=== PATIENT | female | born 1960 | race Caucasian/White ===

== ENCOUNTER → 2016-11-23 | Day surgery (SDC) | payer OTHER ==
[~2016-11-23] MED LIST: ACETAMINOPHEN; ACTOS30 MG PO; ADVIL200 M1 PO; ALBUTEROL MININEB NEB; ALBUTEROL17 GM INH; BENTYL10 MG PO; BUPROPION HCL150 M3 PO; BUPROPION XL150 MG PO; CLARITIN D; CLARITIN10 M2 PO; DICYCLOMINE HCL20 MG PO; FLUOXETINE HCL20 M1 PO; GLIPIZIDE10 MG PO; GLUCOPHAGE500 MG PO; GLUCOTROL PO; GLUCOTROL XL; GLUCOTROL10 MG PO; HCTZ; HYDROCODON-ACE1 EAC9; LASIX PO; LIPITOR; LISINOPRIL; MAG-OX 400400 M1 PO; METFORMIN PO; NASONEX17 GM; OMEPRAZOLE20 M2 PO; PIOGLITAZONE HC30 MG PO; POTASSIUM CHLO20 ME1 PO; PRAVACHOL PO; PRAVASTATIN SOD40 MG PO; PREVACID PO; PRILOSEC PO; PROZAC PO; SARAFEM20 MG PO; TENORMIN50 MG PO; VICTOZA 3-0.6 MG/0.1; VITAMIN B-1100 M1 PO; WELLBUTRIN100 MG PO; ZESTRIL40 MG PO; [UNRECOGNIZED DRUG - REMARK]
--- NOTE | ~2016-11-23 | OR ---
Unit #: [id number] #: [id number] Patient: RAND SANTOS [id number] [address] [address] [id number] O MR#: [id number] NAME: RAND SANTOS ROOM: Date of Procedure: 11/23/2016 Admission Date: 11/23/2016 Surgeon: Tj Haile M.D. : 1960 Attending Physician: Tj Haile M.D. Primary Care Physician: Sabine Villar M.D. OPERATIVE REPORT PREOPERATIVE DIAGNOSIS Right ureteral stone. POSTOPERATIVE DIAGNOSIS Right ureteral stone, passed right ureteral stone. PROCEDURES PERFORMED 1. Cystoscopy. 2. Right ureteroscopy. 3. Right stent removal. ANESTHESIA General. INDICATIONS FOR PROCEDURE Ms. Santos is a pleasant 56-year-old female who had a urinary tract infection and a possible right distal ureteral calculus with hydronephrosis. She had undergone stent placement. The risks, benefits, and alternatives including bleeding, infection, damage to adjacent structures, need for further surgery as well as risk of anesthesia were explained to the patient. Informed consent was obtained, and she wished to proceed. It should be noted that her creatinine is up from 1.0 a month ago to 1.7 today. DESCRIPTION OF PROCEDURE The patient was taken to the operative suite and properly identified. After the application of satisfactory general anesthetic, the patient was placed in a dorsal lithotomy position. All pressure points were padded to satisfaction of surgical, anesthetic, and nursing teams. Her genitalia were prepped and draped in the usual sterile fashion. I introduced a rigid 22-Mauritian cystoscope. The bladder had no tumors, stones, or masses. I grasped the right double-J stent. I brought out the meatus. I passed a 0.035 Sensor wire, which coiled in the right renal pelvis. I passed a semi-rigid ureteroscope alongside the wire. I looked my way all the way to the UPJ. There was no evidence of a stone. I elected to not leave a stent as this was atraumatic. The patient tolerated the procedure well without complication. She was transported stable and extubated to PACU. PLAN Because of her creatinine increase, I will have her hold her Lasix and her potassium. I will see her back in 2 weeks with a renal ultrasound and a BMP prior. Unit #: [id number] #: [id number] Patient: RAND SANTOS Dictated by... Veronica Naylor/rajwinder TD: 11/24/2016 03:37 JOB #: [id number] OPERATIVE REPORT Page 1 of 1 X Tj Haile MD X PROCEDURE OPERATIVE NOTE
--- NOTE | ~2016-11-23 | EKG ---
PATIENT: RAND SANTOS UNIT #: [id number] Ventricular Rate: 84 BPM Atrial Rate: 84 BPM P-R Interval: 172 ms QRS Duration: 82 ms Q-T Interval: 386 ms QTC Calculation(Bezet): 456 ms P [place]: 79 degrees Calculated R [place]: 49 degrees Calculated T [place]: 45 degrees Diagnosis Line: Normal sinus rhythm Diagnosis Line: Low voltage QRS Diagnosis Line: Otherwise normal ECG Diagnosis Line: When compared with ECG of 21-OCT-2016 11:24, Diagnosis Line: No significant change was found Diagnosis Line: Confirmed by WESTON ARANA MD ([id number]) on 11/26/2016 Diagnosis Line: 10:45:45 PM INTERPRETING MD: YASMEEN VILLATORO
[2016-11-23 11:35] LABS: BUN/CREATININE RATIO 17.64; CALCIUM SERUM 9.6 mg/dL (8.4-10.2); CREATININE SERUM 1.7 mg/dL (0.6-1.4); GLOM FILT RATE Estimated 33.1 mL/min (>60); POTASSIUM 4.8 mmol/L (3.5-5.1)
== END | disposition home or self-care (01) ==
LOC: CSUR 09:51
PROVIDERS: Urology
PROC: 0TP98DZ Removal of Intraluminal Device from Ureter, Via Natural or Artificial Opening Endoscopic (ICD-10-PCS; principal; 2016-11-23 11:30)
DX: N20.1 Calculus of ureter (principal); J45.909 Unspecified asthma, uncomplicated; N39.3 Stress incontinence (female) (male); K44.9 Diaphragmatic hernia without obstruction or gangrene; K29.70 Gastritis, unspecified, without bleeding; K57.90 Diverticulosis of intestine, part unspecified, without perforation or abscess without bleeding; F17.200 Nicotine dependence, unspecified, uncomplicated; Z86.010 Personal history of colon polyps; Z88.2 Allergy status to sulfonamides; Z98.890 Other specified postprocedural states; Z98.51 Tubal ligation status; Z91.040 Latex allergy status; Z91.048 Other nonmedicinal substance allergy status; Z88.0 Allergy status to penicillin; Z91.041 Radiographic dye allergy status
CPT/HCPCS: 80048; 82947; 93005; J1956; J2250; J2405; J3010

== ENCOUNTER → 2016-12-11 | Outpatient (CLI) | payer OTHER ==
--- NOTE | ~2016-12-11 | US77 ---
[facility] A Service [facility] RADIOLOGY TEXT RESULTS PATIENT: RAND SANTOS LOCATION: [facility] : 60 UNIT #: [id number] AGE: [address]: Tj Haile MD SEX: F ORDER DR: [id number] [facility]. [place], [place] [address] [id number] O MR#: [id number] Acc #: [id number] NAME: RAND SANTOS : 1960 SEX: F STUDY DATE/TIME: 12/11/2016 13:25 UNIT: [facility]US ROOM: STUDY DESCRIPTION: US Kidney Bilateral Complete Attending Physician: Tj Haile M.D. Referring Physician: Tj Haile M.D. Ordering Physician: Tj Haile M.D. Primary Care Physician: Sabine Villar M.D. MEDICAL IMAGING REPORT This report is preliminary unless electronic signature is present EXAM Renal ultrasound. INDICATION Acute renal failure. GFR 56.1, BUN 14, creatinine 1.1. PROCEDURE Talbot-scale and Doppler imaging of the kidneys and bladder. COMPARISON CT from 10/16/2016 FINDINGS Unremarkable bladder. Right kidney measures 9.8 cm. The left kidney measures 10.9 cm. No hydronephrosis. IMPRESSION Negative renal ultrasound. Dictated by... David Gonzales M.D. THIS IS AN ELECTRONICALLY VERIFIED REPORT David Gonzales M.D. at 12/12/2016 7:19 AM REXD/hakeem TD: 12/11/2016 23:12 JOB #: [id number] MEDICAL IMAGING REPORT [facility] A [facility] RADIOLOGY TEXT RESULTS PATIENT: RAND SANTOS LOCATION: [facility] : 60 UNIT #: [id number] AGE: [address]: Tj Haile MD SEX: F ORDER DR: Page 1 of 1 COPY
[2016-12-11 14:48] LABS: BUN/CREATININE RATIO 12.72; CALCIUM SERUM 10.1 mg/dL (8.4-10.2); CREATININE SERUM 1.1 mg/dL (0.6-1.4); GLOM FILT RATE Estimated 56.1 mL/min (>60); POTASSIUM 4.8 mmol/L (3.5-5.1)
== END | disposition home or self-care (01) ==
LOC: CGUS 12:56
PROVIDERS: Urology
DX: N17.9 Acute kidney failure, unspecified (principal)
CPT/HCPCS: 36415; 76770; 80048

== ENCOUNTER → 2016-12-27 | Outpatient (CLI) | payer OTHER ==
--- NOTE | ~2016-12-27 | TH ---
Unit #: [id number] #: [id number] Patient: RAND SANTOS [id number] [address] [address] [id number] O MR#: [id number] NAME: RAND SANTOS. : 1960 SEX: F STUDY DATE/TIME: 12/27/2016 UNIT: [facility] ROOM: STUDY DESCRIPTION: Attending Physician: Conner Schneider M.D. Referring Physician: Conner Schneider M.D. Primary Care Physician: Sabine Villar M.D. CARDIOLOGY REPORT EXAM Lexiscan Cardiolite stress test, nuclear portion. PROCEDURE Using technetium 99m labeled Cardiolite, rest and stress SPECT images were obtained. Multiple SPECT images were obtained in various views including horizontal and vertical long axis and short axis views of the left ventricle. Images were obtained by gated SPECT method. The patient was administered 10.84 mCi of Cardiolite at rest. The patient was administered 33.9 mCi of Cardiolite after Lexiscan infusion was completed. On the stress images, there is a small area of moderate decreased isotope activity in the anteroseptal wall. The rest images show a larger area of moderate decreased isotope activity anteroseptally. Comparing rest and stress images, there is a small area of predominantly fixed defect seen in the anteroseptal wall, worse on the rest images consistent with soft tissue artifact. The left ventricular ejection fraction is calculated to be 55%. There is no focal wall motion abnormality seen. CONCLUSION 1. There is a small area of predominantly fixed defect seen anteroseptally, most likely consistent with soft tissue artifact. 2. No obvious stress-induced ischemia noted. 3. The left ventricular ejection fraction is calculated to be 55%. 4. There is no focal wall motion abnormality seen. 5. Normal Lexiscan Cardiolite stress test. 6. Technically somewhat limited study. Clinical correlation is requested. Dictated by... Veronica Cornejo TD: 12/27/2016 12:03 JOB #: [id number] Unit #: [id number] #: [id number] Patient: SANTOS,RAND A CARDIOLOGY REPORT Page 1 of 1 X Agatha Hearn MD <ELECTRONICALLY SIGNED> 03/23/17 1429 CARDIOLOGY REPORT
--- NOTE | ~2016-12-27 | ST ---
Unit #: [id number] #: [id number] Patient: RAND SANTOS [id number] [facility] [address] [facility]. [place], [place] [address] [id number] O MR#: [id number] NAME: RAND SANTOS. : 1960 SEX: F STUDY DATE/TIME: 12/27/2016 UNIT: [facility] ROOM: STUDY DESCRIPTION: Cardiolite stress test Attending Physician: Conner Schneider M.D. Referring Physician: Conner Schneider M.D. Primary Care Physician: Sabine Villar M.D. CARDIOLOGY REPORT EXAM Walking Lexiscan Cardiolite stress test. DESCRIPTION Baseline EKG: Normal sinus rhythm with ventricular rate 83 BPM. Had a slightly prolonged QT segment. Lexiscan is a 4 minutes test with Lexiscan being injected within the first minute. Followup with Cardiolite. EKG during this test shows some nonspecific ST-T wave abnormalities in inferolateral leads. Patient had no complaints of chest pain, palpitations or dizziness. Had increased shortness of breath and fatigueness, which resolved in recovery phase. Maximum heart rate response was 130 BPM. Maximum blood pressure response was 155/75 mmHg. Cardiolite was injected after Lexiscan within the first minute of the test. Radionuclide test pending. Please correlate with nuclear images. Dictated by... Camila Atkins A.P.R.N. for Veronica Cornejo/ayala TD: 12/27/2016 10:34 JOB #: [id number] CC: [facility] CARDIOLOGY REPORT Page 1 of 1 X Camila Atkins APRN CARDIOLOGY REPORT
== END | disposition home or self-care (01) ==
LOC: CNUC 07:41
DX: R06.02 Shortness of breath (principal); I10 Essential (primary) hypertension; J44.9 Chronic obstructive pulmonary disease, unspecified; E11.9 Type 2 diabetes mellitus without complications; E78.5 Hyperlipidemia, unspecified
CPT/HCPCS: 78452; 93017; A9500; J2785

== ENCOUNTER → 2017-02-13 | Day surgery (SDC) | payer OTHER ==
--- NOTE | ~2017-02-13 | OR ---
Unit #: [id number] #: [id number] Patient: RAND SANTOS [id number] [address] [place], [place] [address] [id number] O MR#: [id number] NAME: RAND SANTOS ROOM: Date of Procedure: 02/13/2017 Admission Date: 02/13/2017 Surgeon: Raheem Tejeda M.D. : 1960 Attending Physician: Raheem Tejeda M.D. Primary Care Physician: Sabine Villar M.D. OPERATIVE REPORT PROCEDURES PERFORMED Esophagogastroduodenoscopy with biopsy and colonoscopy with snare polypectomy. INDICATIONS FOR PROCEDURE The patient with history of colon polyps in the past, also with history of biopsy proven Garcia esophagus and chronic GERD symptoms, undergoing evaluation with upper endoscopy and colonoscopy. MEDICATIONS Monitored anesthesia. POSTOPERATIVE FINDINGS 1. 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 Biopsies taken in the distal esophagus right above GE junction. 2. Mild esophagitis. 3. Chronic appearing gastritis, biopsies taken. 4. Normal duodenum and distal duodenum. 5. Colonoscopy completed to cecum. Prep was adequate. 6. Transverse colon polyp, 5 to 6 mm, snared and sent for histopathology. 7. Sigmoid colon polyps x3, 5 to 6 mm, snared and sent for histopathology together. 8. Very poor anal tone and internal hemorrhoids. PLAN Follow up on the pathology report. Repeat colonoscopy in 5 years. Repeat upper endoscopy in 3 years. DESCRIPTION OF PROCEDURE The patient was explained of the procedure, risks, and benefits along with the risks and benefits of anesthesia. She was brought to the endoscopy room. Propofol anesthesia was given. Bite block was placed. The scope was passed down the mouth into the esophagus, stomach, duodenum, and distal duodenum. Findings as described. Biopsies taken. Gently, I pulled it out of the patient's mouth. At this time, she was turned around and repositioned for colonoscopy. Rectal exam was done, which was normal. Colonoscope was lubricated, passed up the rectum, advanced under direct vision all the way to the cecum. Cecum was identified by ileocecal valve and appendiceal orifice. I then started to pull the scope out carefully looking. Several polyps were seen as described. I retroflexed in the rectum, internal hemorrhoids Unit #: [id number] #: [id number] Patient: RAND SANTOS noted. The scope was gently pulled out. She tolerated it well. Dictated by... Veronica Tabor/rajwinder TD: 02/13/2017 23:00 JOB #: [id number] CC: Rosa Antunez M.D. OPERATIVE REPORT Page 1 of 1 X Raheem Tejeda MD X PROCEDURE OPERATIVE NOTE
== END | disposition home or self-care (01) ==
LOC: COPS 09:29
DX: Z12.11 Encounter for screening for malignant neoplasm of colon (principal); D12.3 Benign neoplasm of transverse colon; D12.5 Benign neoplasm of sigmoid colon; K29.50 Unspecified chronic gastritis without bleeding; K21.0 Gastro-esophageal reflux disease with esophagitis; K64.8 Other hemorrhoids; J45.909 Unspecified asthma, uncomplicated; E11.9 Type 2 diabetes mellitus without complications; I50.9 Heart failure, unspecified; F17.210 Nicotine dependence, cigarettes, uncomplicated; Z86.010 Personal history of colon polyps; Z87.19 Personal history of other diseases of the digestive system; Z88.0 Allergy status to penicillin; Z88.2 Allergy status to sulfonamides; Z88.8 Allergy status to other drugs, medicaments and biological substances; Z91.041 Radiographic dye allergy status; Z91.040 Latex allergy status; Z91.048 Other nonmedicinal substance allergy status; Z79.84 Long term (current) use of oral hypoglycemic drugs; Z79.51 Long term (current) use of inhaled steroids; Z79.899 Other long term (current) drug therapy; Z98.51 Tubal ligation status; Z90.49 Acquired absence of other specified parts of digestive tract; Z98.890 Other specified postprocedural states
CPT/HCPCS: 82947; 88305; 88312